=== PATIENT | female | born 1970 | race Caucasian/White ===

== ENCOUNTER 2016-04-25 16:29 | Emergency (ER) | payer SELFPAY ==
[~2016-04-25] VITALS: Ht 156.2 cm; Wt 70.0 kg
[~2016-04-25 16:29] MED LIST: CEPACOL2 MG MT; CIPROFLOXACN500 MG PO; ESTRACE2 MG OR; FIORICET PO; HYDROCHLOROT12.5 MG PO; HYDROCHLOROT25 MG PO; LO LOESTRIN PO; LORTAB 10-325 M1 TAB PO; LORTAB 5-325 MG1 TAB PO; MOTRIN800 MG PO; NAPROXEN250 MG PO; PROZAC20 M1 PO; WELLBUTRI OR
[2016-04-25 19:30] LABS: HEMATOCRIT 36.1 % (37.0-47.0); HEMOGLOBIN 11.9 g/dl (12.0-16.0); IMMATURE GRANULOCYTES 0.3 % (0.0-1.0); MEAN CELL VOLUME 88.3 fL CALC (80.0-100.0); MEAN CORPUSCULAR HGB 29.1 pG CALC (26.0-32.0); NEUT# 4.39 thou/uL (2.00-7.15); RED BLOOD COUNT 4.09 mill/uL (4.20-5.60); RED CELL DISTRI WIDTH 13.2 % (11.5-15.5)
[2016-04-25 19:45] LABS: ALBUMIN 4.2 g/dL (3.2-5.0); ALKALINE PHOSPHATASE 96 u/l (38-126); ANION GAP 16 (6-22 (CALC)); BILIRUBIN, TOTAL 0.3 mg/dL (0.0-1.4); BUN 13 mg/dL (7-17); BUN/CREATININE RATIO 20 (12-20 (CALC)); CALCIUM 9.9 mg/dL (8.4-10.2); CARBON DIOXIDE 25 mmol/l (22-30); CHLORIDE 103 mmol/l (95-108); CREATININE 0.7 mg/dL (0.5-1.0); GFR > 60 ML/MIN (>=60 (CALC)); GFR FOR AFR.AMER. > 60 ML/MIN (>=60 (CALC)); GLUCOSE 84 mg/dL (65-105); POTASSIUM 4.3 mmol/l (3.5-5.1); SGOT/AST 21 u/l (14-36); SGPT/ALT 29 u/l (9-52); SODIUM 140 mmol/l (137-146); TOTAL PROTEIN 7.5 g/dL (6.3-8.2)
[2016-04-26] MEDS ORDERED: PERCOCET 5/325M1 TAB PO (04:03)
[2016-04-26 05:00] VITALS: BP 98/62
== END 2016-04-26 05:00 | disposition home or self-care (01) | DRG 103 ==
LOC: ED 16:29
PROVIDERS: Emergency Medicine
DX: R51 Headache (principal); G89.29 Other chronic pain; R11.0 Nausea

== ENCOUNTER 2019-07-14 20:19 | Emergency (ER) | payer SELFPAY ==
[~2019-07-14] VITALS: Ht 156.2 cm; Wt 76.4 kg
[~2019-07-14 20:19] MED LIST changes: +PERCOCET 5/325M1 TAB PO
[2019-07-14 21:08] LABS: HEMATOCRIT 34.7 % (37.0-47.0); HEMOGLOBIN 11.3 g/dl (12.0-16.0); IMMATURE GRANULOCYTES 0.4 % (0.0-5.0); MEAN CELL VOLUME 85.5 fL CALC (80.0-100.0); MEAN CORPUSCULAR HGB 27.8 pG CALC (26.0-32.0); MEAN CORPUSCULAR HGB CONC 32.6 g/dL CAL (32.0-36.0); NEUT# 10.3 thou/uL (2.00-7.15); RED BLOOD COUNT 4.06 mill/uL (4.20-5.60); RED CELL DISTRI WIDTH 13.6 % (11.5-15.5); URINE BILIRUBIN - DIPSTICK NEGATIVE (NEGATIVE); URINE BLOOD DIPSTICK SMALL (NEGATIVE); URINE COLOR YELLOW; URINE GLUCOSE - DIPSTICK NEGATIVE (NEGATIVE); URINE KETONE NEGATIVE (NEGATIVE); URINE PROTEIN - DIPSTICK TRACE mg/dL (NEG-TRACE); URINE UROBILINOGEN - DIPSTICK 0.2 E.U./dL (0.2)
[2019-07-14 21:09] LABS: URINE LEUK ESTERASE MODERATE (NEGATIVE); URINE NITRITE - DIPSTICK POSITIVE (Negative)
[2019-07-14 21:18] LABS: URINE BACTERIA FEW hpf; URINE SQUAMOUS EPITHELIAL CELL FEW EPI/hpf (0-FEW)
[2019-07-14 21:27] LABS: ALBUMIN 4.2 g/dL (3.2-5.0); ALKALINE PHOSPHATASE 84 u/l (38-126); ANION GAP 12 (6-22 (CALC)); BUN 9 mg/dL (7-17); BUN/CREATININE RATIO 11 (12-20 (CALC)); CARBON DIOXIDE 26 mmol/l (22-30); CHLORIDE 100 mmol/l (95-108); CREATININE 0.8 mg/dL (0.5-1.0); GFR > 60 ML/MIN (>=60 (CALC)); GFR FOR AFR.AMER. > 60 ML/MIN (>=60 (CALC)); POTASSIUM 3.6 mmol/l (3.5-5.1); SGOT/AST 21 u/l (14-36); SODIUM 134 mmol/l (137-146); TOTAL PROTEIN 7.4 g/dL (6.3-8.2)
[2019-07-14 21:28] LABS: BILIRUBIN, TOTAL 0.8 mg/dL (0.0-1.4)
[2019-07-14] MEDS ORDERED: ZOFRAN4 MG/TAB PO (21:51)
[2019-07-14] MEDS ORDERED: TORADOL PO (21:51)
[2019-07-14] MEDS ORDERED: TAMSULOSIN0.4 MG PO (21:51)
[2019-07-14] MEDS ORDERED: BACTRIM DS1 TAB PO (21:51)
[2019-07-14 23:00] VITALS: BP 95/55
--- NOTE | 2019-07-16 11:08 | NUR ---
RECD CALL FROM LAB THIS MORNING RE PRELIM BLOOD CULTURE RESULTS; GRAM NEGATIVE RODS IN 1 OF 4 BOTTLES. PT URINE CULTURE SHOWS E COLI. CALLED AND SPOKE WITH PT, INFORMED PT OF GROWTH IN BLOOD AND ADVISED TO EITHER RETURN TO THE ER OR SEE PCP LUCIANO. PT TOLD ME SHE DOESN'T HAVE INS OR A PCP BUT WILL RETURN TO ER.
== END 2019-07-14 23:02 | disposition home or self-care (01) | DRG 690 ==
LOC: ED 20:19
DX: N13.6 Pyonephrosis (principal); B96.20 Unspecified Escherichia coli [E. coli] as the cause of diseases classified elsewhere; Z87.442 Personal history of urinary calculi

== ENCOUNTER 2019-07-16 14:05 | Observation (INO) | payer SELFPAY ==
[~2019-07-16] VITALS: Ht 154.9 cm; Wt 79.0 kg
[~2019-07-16 14:05] MED LIST changes: +BACTRIM DS1 TAB PO; +TAMSULOSIN0.4 MG PO; +TORADOL PO; +ZOFRAN4 MG/TAB PO
--- NOTE | 2019-07-16 14:15 | NUR ---
PT TO ROOM WITH A STEADY GAIT FOR BEDSIDE TRIAGE.
[2019-07-16 14:52] LABS: HEMATOCRIT 29.4 % (37.0-47.0); HEMOGLOBIN 9.4 g/dl (12.0-16.0); IMMATURE GRANULOCYTES 0.3 % (0.0-5.0); MEAN CELL VOLUME 86.7 fL CALC (80.0-100.0); MEAN CORPUSCULAR HGB 27.7 pG CALC (26.0-32.0); NEUT# 4.2 thou/uL (2.00-7.15); RED BLOOD COUNT 3.39 mill/uL (4.20-5.60)
--- NOTE | 2019-07-16 15:05 | NUR ---
PT RESTING ON BED TYPING ON PHONE, NO COMPLAINTS AT THIS TIME
[2019-07-16 15:16] LABS: ALBUMIN 3.4 g/dL (3.2-5.0); CREATININE 1.2 mg/dL (0.5-1.0); POTASSIUM 3.5 mmol/l (3.5-5.1); TOTAL PROTEIN 6.2 g/dL (6.3-8.2)
--- NOTE | 2019-07-16 15:19 | NUR ---
IV FLUIDS INFUSING AND ANTIBIOTICS FINISHED. PT LAUGHING AND JOKING WITH STAFF, DENIES DIZZINESS/DENIES NAUSEA/VOMITING.
[2019-07-16 15:20] LABS: BILIRUBIN, TOTAL 0.3 mg/dL (0.0-1.4)
[2019-07-16 15:33] LABS: URINE BILIRUBIN - DIPSTICK NEGATIVE (NEGATIVE); URINE BLOOD DIPSTICK TRACE-INTACT (NEGATIVE); URINE COLOR YELLOW; URINE GLUCOSE - DIPSTICK NEGATIVE (NEGATIVE); URINE KETONE 15 mg/dL (NEGATIVE); URINE LEUK ESTERASE TRACE (NEGATIVE); URINE NITRITE - DIPSTICK NEGATIVE (Negative); URINE PROTEIN - DIPSTICK NEGATIVE (NEG-TRACE); URINE SPECIFIC GRAVITY >=1.030; URINE UROBILINOGEN - DIPSTICK 0.2 E.U./dL (0.2)
--- NOTE | 2019-07-16 15:43 | NUR ---
2ND BAG OF FLUIDS HANGING. PT REMAINS STABLE EXCEPT FOR BLOOD PRESSURE LOW, ASKING FOR PAIN MEDICATION FOR BACK FROM KIDNEY STONES.
--- NOTE | 2019-07-16 16:00 | NUR ---
TYSON ROSA AND WARNER CHAKRABORTY NOTIFIED OF CONSENT ORDER PLACED BY FOR STENT PLACEMENT TOMORROW 07/16/19 @ 5PM.
[2019-07-16 16:33] VITALS: BP 90/61
--- NOTE | 2019-07-16 16:33 | NUR ---
PT ARRIVED TO [facility] ROOM 261 IN STABLE CONDITION VIA WHEELCHAIR ACCOMPAINED BY WARNER FRANCO. ASSESSMENT AND VITALS COMPLETED AT THIS TIME. BP 90/61, PT REPORTS LOW BP IS NORMAL. HR 70, O2 100% ON ROOM AIR. REPIRATIONS ARE EVEN AND UNLABORED WITH NO SIGNS OF DISTRESS. LUNG SOUNDS ARE CLEAR. HEART RHYTHM IS NORMAL WITH TELE IN PLACE. BOWEL SOUNDS ARE ACTIVE IN ALL QUADRANTS WITH SOME TENDERNESS IN LOWER QUADRANTS. LAST REPORTED BM 07/14/19.RADIAL AND PEDAL PULSES ARE STRONG WITH NORMAL CAPILLARY REFILL. NO EDEMA IN ANY EXTREMITIES.SKIN IS WARM AND DRY WITH NO BREAKDOWN.IV FLUSHED, SITE APPEARS HELTHY AND PATNET, FLUIDS STARTED AT THIS TIME RUNNING 100 ML ORDERED. WRITTER INFORMED IN REPORT THAT PT WAS HERE IN THE ER A FEW DAYS PRIOR DUE TO A KINDEY STONE. PT SENT HOME WITH BACTRIUM. LABS SHOWED ECOLI IN BLOOD. PT CALLED BACK TO ER. WRITTER INFORMED THAT PT PRESENTS WITH A 8MM KIDNEY STONE.PLANNED STENT PLACED 07/17/19 AT 1700. PT INFORMES WRITTER OF MORPHINE ALLERGY, ALLERGY BAND APPLIED WITH FALL RISK BAND.PT PRESENT WITH SOME ANXIETY, REASSURED PT THAT IF SHE NEEDED ANYTHING, OUR STAFF WAS HER . PT DENIES ANY PAIN OR DISCOMFORTS AT THIS TIME. ALL SAFTEY PECAUTIONS IN PLACE WITH CALL LIGHT IN REACH, ORIENTED PT TO ROOM AND CALL LIGHT SYSTEM. PT RESTING IN SEMIFOWLERS POSITION WATCHING TV. WILL CONTIUE TO MONITOR.
--- NOTE | 2019-07-16 16:38 | NUR ---
PT REPORT GIVEN TO FLOOR AND PT TAKEN TO FLOOR PER W/C
--- NOTE | 2019-07-16 19:30 | NUR ---
PT RESTING IN BED, ALERT AND ORIENTED.RESPIRATIONS EVEN AND UNLABORED ON RA. LUNGS SOUND CLEAR. PEDAL PULSES ARE STRONG. PT REPORTS HAVING ACHY/DULL PAIN IN HER LOWER BACK RATING IT A 5/10. MD TO BE NOTIFIED. TELE IN PLACE. PT PROVIDED WITH A PILLOW PER REQUEST. SAFETY PRECAUTIONS IN PLACE.
[2019-07-16 21:29] VITALS: BP 100/57
[2019-07-16 21:50] VITALS: BP 99/69
[2019-07-17] VITALS (8 sets, daily range): BP systolic 96–115; BP diastolic 56–80
--- NOTE | 2019-07-17 00:12 | NUR ---
PT RESTING IN BED. NO S/S OF DISTRESS AT THIS TIME. ADJUSTED THE BLINDS IN PT ROOM TO TRY TO BLOCK OUT THE LIGHT PER REQUEST. SAFETY PRECAUTIONS IN PLACE. WILL CONTINUE TO MONITOR.
--- NOTE | 2019-07-17 04:13 | NUR ---
PT RESTING IN BED. NO S/S OF DISTRESS AT THIS TIME. SAFETY PRECAUTIONS IN PLACE. WILL CONTINUE TO MONITOR.
[2019-07-17 05:35] LABS: HEMATOCRIT 27.8 % (37.0-47.0); HEMOGLOBIN 8.7 g/dl (12.0-16.0); IMMATURE GRANULOCYTES 0.3 % (0.0-5.0); MEAN CELL VOLUME 88.5 fL CALC (80.0-100.0); MEAN CORPUSCULAR HGB 27.7 pG CALC (26.0-32.0); MEAN CORPUSCULAR HGB CONC 31.3 g/dL CAL (32.0-36.0); NEUT# 3.58 thou/uL (2.00-7.15); RED BLOOD COUNT 3.14 mill/uL (4.20-5.60); RED CELL DISTRI WIDTH 14.1 % (11.5-15.5)
--- NOTE | 2019-07-17 05:54 | NUR ---
PT. RESTING IN BED WITH EYES CLOSED; RESP. EVEN AND UNLABORED. CALL LIGHT IS IN REACH.
[2019-07-17 05:55] LABS: ALBUMIN 2.9 g/dL (3.2-5.0); ALKALINE PHOSPHATASE 58 u/l (38-126); ANION GAP 11 (6-22 (CALC)); BILIRUBIN, TOTAL 0.2 mg/dL (0.0-1.4); BUN 11 mg/dL (7-17); BUN/CREATININE RATIO 12 (12-20 (CALC)); CARBON DIOXIDE 20 mmol/l (22-30); CHLORIDE 111 mmol/l (95-108); CREATININE 0.9 mg/dL (0.5-1.0); GFR > 60 ML/MIN (>=60 (CALC)); GFR FOR AFR.AMER. > 60 ML/MIN (>=60 (CALC)); POTASSIUM 3.8 mmol/l (3.5-5.1); SGOT/AST 17 u/l (14-36); SODIUM 138 mmol/l (137-146); TOTAL PROTEIN 5.6 g/dL (6.3-8.2)
--- NOTE | 2019-07-17 07:00 | NUR ---
WRITTEN REPORT RECEIVED FROM WARNER BRUNSON;PT APPEARS TO BE SLEEPING IN SUPINE POSITION;RESPIRATIONS APPEAR EVEN AND UNLABORED ON RA;NO S/S OF DISTRESS NOTED;TELE MONITORING IN PLACE;IV FLUIDS INFUSING WITH EASE PER ORDER;NPO DIET IN PLACE;ALL SAFETY PRECAUTIONS NOTED WITH BED IN THE LOWEST POSITION AND CALL LIGHT IN REACH;WILL CONTINUE TO MONITOR
--- NOTE | 2019-07-17 08:30 | NUR ---
PT RESTING IN SEMI FOWLERS POSITION,A&O X3;VS OBTAINED AND ASSESSMENT COMPLETED;PT REPORTS MILD FLANK PAIN AT THIS TIME,PAIN SCALE AND REPORTING EDUCATED;ZOFRAN 4MG IVP ADMINISTERED PER REQUEST FOR NAUSEA;RESPIRATIONS EVEN AND UNLABORED ON RA,CLEAR LUNG SOUNDS;ABDOMEN SOFT ON PALPATION AND ACTIVE IN ALL 4 QUADRANTS,PT REPORTS SMALL/FORMED BOWEL MOVEMENT IN THE NIGHT;STRONG PEDAL PULSES;SKIN INTACT;TELE MONITORING IN PLACE;#22G TO RFA INFUSING NS @ 100ML/HR,SITE APPEARS HEALTHY;PT VERBALIZES UNDERSTANDING ON NPO DIET STATUS;ETA FOR OR @ 1600;PT DENIES ANY ADDITIONAL NEEDS AT THIS TIME AND IS ENCOURAGED TO CALL FOR ASSISTANCE IF NEEDED;FALL PRECAUTIONS IN PLACE WITH BED IN THE LOWEST POSITION AND CALL LIGHT IN REACH;WILL CONTINUE TO MONITOR
--- NOTE | 2019-07-17 10:16 | NUR ---
AT BEDSIDE DISCUSSING POC.
--- NOTE | 2019-07-17 10:35 | NUR ---
PT REPORTS LOWER BACK PAIN RATING 5/10 ON THE PAIN SCALE AND REQUESTS PAIN MEDICATION,PT TO BE MEDICATED WITH TORADOL 15MG IVP AT THIS TIME;PT DENIES ANY ADDITIONAL NEEDS;WILL CONTINUE TO MONITOR FOR EFFECTIVENESS
--- NOTE | 2019-07-17 11:40 | NUR ---
PT RESTING IN SUPINE POSITION;RESPIRATIONS EVEN AND UNLABORED ON RA;PT REPORTS THAT PRN TORADOL 15MG IVP WAS UNEFFECTIVE WITH PAIN.PAIN SCALE REMAINS 5/10, PT TO BE MEDICATED WITH PRN DILAIDID 0.5MG IVP PER ORDER;IV FLUIDS INFUSING WITH EASE AND IV ABX STARTED AT THIS TIME;EMESIS BAGS PROVIDED PRECAUTION BECAUSE PT WAS PREVIOUSLY ADMINISTERED IV ZOFRAN;NPO DIET REMAINS IN PLACE;PT DENIES ANY ADDITIONAL NEEDS AND IS ENCOURAGED TO CALL FOR ASSISTANCE IF NEEDED;FALL PRECAUITONS NOTED WITH BED IN THE LOWEST POSITION AND CALL LIGHT IN REACH;WILL CONTINUE TO MONITOR
--- NOTE | 2019-07-17 15:50 | NUR ---
PT RESTING IN SEMI FOWLERS POSITION;RESPIRATIONS EVEN AND UNLABORED ON RA;PT REPORTS MILD HEADACHE PAIN AT THIS TIME BUT DENIES THE NEED FOR PAIN MEDICATION;IV FLUIDS CONTINUE TO INFUSE WITH EASE TO RFA;600CC OF YELLOW URINE EMPTIED FROM HAT AND STRAINED;TELE MONITORING IN PLACE;NPO DIET REINFORCED;BELONGINGS PROVIDED TO PT THAT WERE DROPPED OFF BY FAMILY;PT DENIES ANY ADDITIONAL NEEDS AT THIS TIME AND IS ENCOURAGED TO CALL FOR ASSISTANCE IF NEEDED;CALL LIGHT IN REACH;WILL CONTINUE TO MONITOR
--- NOTE | 2019-07-17 16:31 | NUR ---
PT TRANSPORTED TO OR IN STABLE CONDITION VIA STRETCHER ACCOMPANIED BY WARNER DAY.
--- NOTE | 2019-07-17 19:00 | NUR ---
PT RETURNS TO UNIT VIA STRETCHER ACCOMPANIED BY Kevin OLSON RN. PT AMBULATORY TO BED. BEDSIDE REPORT RECEIVED FROM Kevin OLSON RN. PT IN STABLE CONDITION. DENIES PAIN OR DISCOMFORT. PHYSICAL ASSESMENT COMPLETE. PT REQUESTING TO EAT AND ASKING ABOUT DISCHARGE HOME TONIGHT. STATES DR. PHIPPS SAID SHE WOULD BE DISCHARGED TONIGHT. WILL F/U W/ DR. HERRING.
--- NOTE | 2019-07-17 19:15 | NUR ---
DR. HERRING CLARIFIES PT WILL BE DISCHARGED HOME TONIGHT. TV DINNER TRAY PROVIDED TO PT.
--- NOTE | 2019-07-17 19:53 | NUR ---
PT UP TO BATHROOM, BACK TO BED, SITTING AT EDGE OF BED, REPORTS NAUSEA, PT W/ APPROX 200ML BILIOUS EMESIS. PER CT SCAN TECH IN ED, PT CONVERTED TO AFIB RVR @ THIS TIME.
--- NOTE | 2019-07-17 20:00 | NUR ---
DISCHARGE HOME HELD BY DR. HE FOR NEW ONSET AFIB W/ RVR. DR. NIMA AVILEZ.
--- NOTE | 2019-07-17 20:10 | NUR ---
PT MEDICATED W/ ZOFRAN FOR C/O NAUSEA AND EMESIS X1. EKG ORDERED TO CONFIRM RYTHM CHANGE. PT ASYMPTOMATIC @ THIS TIME.
[2019-07-17] MEDS ORDERED: CIPROFLOXACN500 MG PO (20:13)
--- NOTE | 2019-07-17 20:23 | NUR ---
EKG DONE BY RT CONFIRMS AFIB RVR. PT REPORTS STARTING TO FEEL RAPID HEART RATE AND "LIKE I JUST RAN A MARATHON"
--- NOTE | 2019-07-17 20:30 | NUR ---
NEW ONSET AFIB RVR REPORTED TO DR. HE, ORDER FOR AMIODARONE 150MG IVX1. DECLINES LAB WORK @ THIS TIME. NO FURTHER ORDERS.
--- NOTE | 2019-07-17 21:23 | NUR ---
REPORTED NO CHANGE IN RYTHM AFTER AMIODARONE DOSE TO DR. HE. ORDER RECEIVED TO TX TO ICU ON AMIODARONE GTT AND LOPRESSOR 5MG IVX1. REPORT GIVEN TO SUMAN HYLTON.
--- NOTE | 2019-07-17 21:33 | NUR ---
PT REQUEST TO USE RESTROOM PRIOR TO TX. ASSISTED TO BATHROOM. PT PASSES LG BM @ THIS TIME. PER ED ADMINISTRATIVE MEDICAL DIRECTOR PT CONVERST TO NSR @ APPROXIMATELY THIS TIME. PT REPORTS PALPITATIONS HAVE SUBSIDED.
--- NOTE | 2019-07-17 21:43 | NUR ---
EKG DONE BY RT CONFIRMS NSR WITH A RATE OF 77bpm.
--- NOTE | 2019-07-17 21:50 | NUR ---
DR. HE INFORMED OF RYTHM CHANGE BACK TO NSR W/ RATE IN THE 70'S. ORDER IS TO HOLD TX AND CON'T TO MONITOR.
[2019-07-18] VITALS: BP 112/75
--- NOTE | 2019-07-18 | NUR ---
VS TAKEN BY SENIOR SOURCING MANAGER, PT DENIES NEEDS @ THIS TIME. REMAINS NSR ON TELEMETRY. CALL ALEMAN REMAINS WITHIN REACH, AGREES TO CALL PRN. ITEMS REMAIN WITHIN REACH. BED REMAINS LOCKED IN LOW POSITION W/ BEDRAILS UP X2.
--- NOTE | 2019-07-18 04:00 | NUR ---
PT APPEARS TO BE SLEEPING COMFORTABLY, NO APPARENT DISTRESS. RESP REG AND UNLABORED. NSR ON TELEMETRY. CALL ALEMAN REMAINS WITHIN REACH. ITEMS REMAIN WITHIN REACH. BED REMAINS LOCKED IN LOW POSITION W/ BEDRAILS UP X2.
[2019-07-18 06:09] VITALS: BP 105/64
--- NOTE | 2019-07-18 07:00 | NUR ---
REPORT RECEIVED FROM WARNER JOHNSON. PT RESTING IN BED SUPINE WITH EYES CLOSED; AWAKENS SPONTANEOUSLY. ALERT AND ORIENTED. DENIES PAIN. RESPIRATIONS EVEN AND UNLABORED ON ROOM AIR. CURRENTLY NSR ON TELEMETRY WITH RATE OF 85. PT UP AND AMBULATED TO BATHROOM INDEPENDENTLY; VOIDED 750 OF DARK [place] CLOUDY URINE; STRAINING URINE. IV FLUIDS INFUSING WITHOUT DIFFICULTY; IV SITE APPEARS HEALTHY. PLAN OF CARE REVIEWED. PT ENCOURAGED TO VERBALIZE CONCERNS. STATES UNDERSTANDING. SAFETY MEASURES IN PLACE. CALL LIGHT WITHIN REACH.
[2019-07-18 08:00] VITALS: BP 113/74
--- NOTE | 2019-07-18 09:09 | NUR ---
DR. HERRING AT BEDSIDE.
--- NOTE | 2019-07-18 09:31 | NUR ---
IV site discontinued, cath intact. No edema , no redness, voices no discomfort.
--- NOTE | 2019-07-18 09:55 | NUR ---
Discharge instructions given. Patient verbalizes understanding of same. Discharged in stable condition via Ambulatory to Home with sister. All belongings sent with pt.
== END 2019-07-18 09:56 | disposition home or self-care (01) | DRG 660 ==
LOC: ED 14:05 → ED-I 15:15 → ED 15:22 → MS2 15:23 → ED-I 15:23 → MS2 15:51
PROVIDERS: Nurse Practitioner Family; ADMIT Internal Medicine; ATTEND Internal Medicine
PROC: 0TC78ZZ Extirpation of Matter from Left Ureter, Via Natural or Artificial Opening Endoscopic (ICD-10-PCS; principal; 2019-07-17)
PROC: 0T778DZ Dilation of Left Ureter with Intraluminal Device, Via Natural or Artificial Opening Endoscopic (ICD-10-PCS; 2019-07-17)
DX: N13.6 Pyonephrosis (principal); R78.81 Bacteremia; I97.191 Other postprocedural cardiac functional disturbances following other surgery; I48.91 Unspecified atrial fibrillation; I95.9 Hypotension, unspecified; F41.9 Anxiety disorder, unspecified; B96.20 Unspecified Escherichia coli [E. coli] as the cause of diseases classified elsewhere; Y83.8 Other surgical procedures as the cause of abnormal reaction of the patient, or of later complication, without mention of misadventure at the time of the procedure; Z87.442 Personal history of urinary calculi; Z20.828 Contact with and (suspected) exposure to other viral communicable diseases
CPT/HCPCS: G0378; J0282; Q9967